=== PATIENT | male | born 1935 | race Caucasian/White ===

== ENCOUNTER → 2019-11-17 | Outpatient (CLI) | payer OTHER ==
[~2019-11-17] MED LIST: ASCO500 PO; ATOR40TA PO; DONE5 PO; FERROUS SULFATE PO; ISOMON20 PO; LISI5 PO; METO50ER PO; NITR.4SL SL; NORT25 PO; POTA10T PO; PYRI100 PO; SPIR25 PO; TAMS.4ER PO; TORS10 PO; XARELTO20 MG PO
[2019-11-19 14:12] LABS: Stool Occult Blood Guaiac 1 Neg (Neg)
== END | disposition home or self-care (01) ==
LOC: LAB SHORT 22:40 → LAB 22:40
PROVIDERS: Physician Assistant Medical
DX: L28.1 Prurigo nodularis (principal)
CPT/HCPCS: 82272

== ENCOUNTER 2020-04-17 15:02 | Emergency (ER) | payer OTHER ==
[~2020-04-17] VITALS: Ht 175.3 cm; Wt 93.4 kg
[~2020-04-17 15:02] MED LIST changes: +FEROSUL325 M1 PO; -FERROUS SULFATE PO; -ISOMON20 PO; +ISOSORBIDE MONO60 MG PO
[2020-04-17 16:28] LABS: Source, Urine Clean Catch
[2020-04-17 16:30] LABS: Bilirubin, Urine Neg (Neg); Blood, Urine Neg (Neg); Glucose Qualitative, Urine Neg (Neg); Ketones, Urine Neg (Neg); Leukocyte Esterase, Urine Neg (Neg); Nitrite, Urine Neg (Neg); Protein, Urine Neg (Neg); Specific Gravity, Urine 1.015 (1.003-1.022); Urobilinogen, Urine NORM (Normal)
[2020-04-17 16:44] LABS: Appearance, Urine Clear (Clear); Color, Urine Yellow (P-Yellow)
== END 2020-04-17 17:09 | disposition home or self-care (01) ==
LOC: ER 15:02
PROVIDERS: Physician Assistant
DX: R23.8 Other skin changes (principal); I11.0 Hypertensive heart disease with heart failure; I50.9 Heart failure, unspecified; I25.2 Old myocardial infarction; I25.10 Atherosclerotic heart disease of native coronary artery without angina pectoris; I48.91 Unspecified atrial fibrillation; Z79.01 Long term (current) use of anticoagulants; Z88.0 Allergy status to penicillin; Z79.899 Other long term (current) drug therapy; Z87.891 Personal history of nicotine dependence
CPT/HCPCS: 81003; 99283

== ENCOUNTER 2020-05-03 22:59 | Inpatient (IN) | payer OTHER, MEDICARE ==
[~2020-05-03] VITALS: Ht 175.3 cm; Wt 90.5 kg
[2020-05-03 23:26] LABS: BASOPHILS ABSOLUTE AUTO 0.05 K/mm3 (0.00-0.23); BASOPHILS PERCENT AUTO 0 % (0-2); EOSINOPHILS ABSOLUTE AUTO 0.01 K/mm3 (0.00-0.68); EOSINOPHILS PERCENT AUTO 0 % (0-6); Hematocrit 40.9 % (37.0-53.0); Hemoglobin 14.1 g/dL (13.5-17.5); IMMATURE GRAN PERCENT AUTO 1 % (0-1); LYMPHOCYTES ABSOLUTE AUTO 0.72 K/mm3 (0.84-5.20); LYMPHOCYTES PERCENT AUTO 3 % (21-46); MONOCYTES ABSOLUTE AUTO 1.12 K/mm3 (0.16-1.47); MONOCYTES PERCENT AUTO 4 % (4-13); Mean Corpuscular HGB 30.1 pg (26.0-34.0); Mean Corpuscular HGB Conc 34.5 g/dL (31.5-36.5); Mean Corpuscular Volume 87 fL (80-100); NEUTROPHILS ABSOLUTE AUTO 24.07 K/mm3 (1.96-9.15); NEUTROPHILS PERCENT AUTO 92 % (41-73); Platelet Count 236 K/mm3 (150-400); RDW Coefficient Variation 13.7 % (11.7-14.2); RDW Standard Deviation 43.7 fL (35.1-46.3); Red Blood Cell Count 4.69 M/mm3 (4.30-5.90); White Blood Cell Count 26.17 K/mm3 (4.00-11.30)
[2020-05-03 23:45] LABS: Alanine Aminotransfer (ALT/SGP 20 U/L (12-78); Albumin, Blood 3.4 g/dL (3.4-5.0); Albumin/Globulin Ratio 0.8 (0.8-1.8); Alk Phos 136 U/L (50-136); Anion Gap 8 mmol/L (6-16); Aspartate Aminotrans (AST/SGOT 14 U/L (12-37); Bilirubin, Total 1.3 mg/dL (0.1-1.0); Blood Urea Nitrogen 24 mg/dL (8-24); Bun/Creatinine Ratio 20.7 (12.0-20.0); CO2, Blood 28 mmol/L (21-32); Chloride, Blood 96 mmol/L (98-108); Creatinine, Blood 1.16 mg/dL (0.60-1.20); Globulin, Blood 4.3 g/dL (2.2-4.0); Glomerular Filtration Rate >60 (60-); Glucose, Blood 138 mg/dL (70-99); Potassium, Blood 4.3 mmol/L (3.5-5.5); Sodium, Blood 132 mmol/L (136-145); Total Protein, Blood 7.7 g/dL (6.4-8.2)
[2020-05-04 00:58] LABS: Troponin I 0.017 ng/mL (0.000-0.040)
[2020-05-04 03:40] LABS: Source, Urine Clean Catch
[2020-05-04 03:45] LABS: Bilirubin, Urine Neg (Neg); Blood, Urine 5+ (Neg); Glucose Qualitative, Urine Neg (Neg); Ketones, Urine Neg (Neg); Leukocyte Esterase, Urine 1+ (Neg); Nitrite, Urine Neg (Neg); Protein, Urine 1+ (Neg); Urobilinogen, Urine NORM (Normal)
[2020-05-04 03:53] LABS: Appearance, Urine Clear (Clear); Color, Urine Yellow (P-Yellow)
[2020-05-04 03:55] LABS: Bacteria Mod /hpf; Red Blood Cells, Urine 50-100 /hpf (0-2); Squamous Epithelial Cells Not Seen /hpf (Few)
[2020-05-04 03:56] LABS: Hyaline Casts 0-2 /lpf (0-2)
[2020-05-04] MEDS ORDERED: GABA100 PO (05:23)
[2020-05-04] MEDS ORDERED: IBUP800 PO (05:24)
[2020-05-04] MEDS ORDERED: Atarax10 MG PO (05:25)
[2020-05-04] MEDS ORDERED: METO25ER PO (05:26)
[2020-05-04] MEDS ORDERED: TEMOVATE15 G1 TOP (05:28)
[2020-05-04 06:09] LABS: BASOPHILS ABSOLUTE AUTO 0.03 K/mm3 (0.00-0.23); BASOPHILS PERCENT AUTO 0 % (0-2); EOSINOPHILS ABSOLUTE AUTO 0.03 K/mm3 (0.00-0.68); EOSINOPHILS PERCENT AUTO 0 % (0-6); Hematocrit 39.1 % (37.0-53.0); Hemoglobin 13.1 g/dL (13.5-17.5); IMMATURE GRAN ABSOLUTE AUTO 0.09 K/mm3 (0.00-0.10); IMMATURE GRAN PERCENT AUTO 1 % (0-1); LYMPHOCYTES ABSOLUTE AUTO 0.85 K/mm3 (0.84-5.20); LYMPHOCYTES PERCENT AUTO 5 % (21-46); MONOCYTES ABSOLUTE AUTO 0.99 K/mm3 (0.16-1.47); MONOCYTES PERCENT AUTO 6 % (4-13); Mean Corpuscular HGB 29.2 pg (26.0-34.0); Mean Corpuscular HGB Conc 33.5 g/dL (31.5-36.5); Mean Corpuscular Volume 87 fL (80-100); Mean Platelet Volume 10.1 fL (9.1-12.4); NEUTROPHILS ABSOLUTE AUTO 16.15 K/mm3 (1.96-9.15); NEUTROPHILS PERCENT AUTO 89 % (41-73); Platelet Count 200 K/mm3 (150-400); RDW Coefficient Variation 13.6 % (11.7-14.2); RDW Standard Deviation 43.7 fL (35.1-46.3); Red Blood Cell Count 4.49 M/mm3 (4.30-5.90); White Blood Cell Count 18.14 K/mm3 (4.00-11.30)
[2020-05-04 06:28] LABS: Albumin, Blood 3.1 g/dL (3.4-5.0); Anion Gap 6 mmol/L (6-16); Blood Urea Nitrogen 22 mg/dL (8-24); Bun/Creatinine Ratio 22.5 (12.0-20.0); CO2, Blood 28 mmol/L (21-32); Calcium, Blood 8.7 mg/dL (8.5-10.1); Chloride, Blood 99 mmol/L (98-108); Creatinine, Blood 0.98 mg/dL (0.60-1.20); Glomerular Filtration Rate >60 (60-); Glucose, Blood 122 mg/dL (70-99); Phosphorus, Blood 2.1 mg/dL (2.5-4.9); Potassium, Blood 4.2 mmol/L (3.5-5.5); Sodium, Blood 133 mmol/L (136-145)
[2020-05-04 06:44] LABS: Influenza A, PCR Negative (NEGATIVE); Influenza B, PCR Negative (NEGATIVE); Resp Syncytial Virus, PCR Negative (NEGATIVE); SARS-Cov-2 (COVID-19) PCR, MMC Negative (NEGATIVE)
[2020-05-04] MEDS ORDERED: Hair, Skin & N1 EACH PO (13:24)
--- NOTE | 2020-05-04 19:44 | NUR ---
NEW ER ADMIT PT ARRIVE TO APPROX 1745 ACCOMPANIED BY HIS . HE IS ABLE TO TRANSFER SBA FROM W/C TO BED. DX LLE CELLULITIS. LABS & ER TX'S EXPLAINED TO PT/ @ THEIR REQUEST, EXPECTED ANTIBX TX & ADMIT PROCESS EXPLAINED TO THEIR SATISFACTION. PT STATE CAME TO ER D/T INCREASING WEAKNESS, STATE WENT TO URGENT CARE ON PREVIOUS DAY & RECIEVED ORAL ANTIBX. HIS L LEG IS SOMEWHAT RED/SWOLLEN w MULT SCABS, MOST DRY. HE HAS MULT SCABS ALL EXTREMITIES, STATE CHR SKIN DISORDER, SEES OUTPT DERMATOLOGY. ALL SCABS OPEN TO AIR @ THIS TIME, SM APPARENT ULCER NOTED R BUTTOCKS. ORIENTED PT/ TO , CALL SYSTEM, FALL PRECAUTIONS. DINNER TRAY & FLUIDS PROVIDED. REPORT TO NOC RN WHO WILL PHOTO WOUNDS & DRESS IF NEEDED.
[2020-05-05] MEDS ORDERED: TEMOVATE15 G1 TOP (04:24)
[2020-05-05] MEDS ORDERED: Triamcinolone A15 GM TOP (04:27)
--- NOTE | 2020-05-05 06:46 | NUR ---
SHIFT SUMMARY: PATIENT IS A&OX3, IMPULSIVE AND HAS URGENCY TO VOID. BED ALARM IS ON FOR SAFETY. CONTINUES TO HAVE BRIGHT RED BLOOD IN URINE WITH A FEW SMALL CLOTS OBSERVED. BLADDER SCAN SHOWS LESS THAN 190ML, PVR, NOT RETAINING. BILAT LE HAVE MULTIPLE SCABBS WITH PEELING SKIN ON FEET. PATIENT REPORTS ITCHING, PRN ATARAX IS GIVEN WITH GOOD EFFECT. PATIENT DOSE SCRATCH AND CAUSES SOME SMALL GTTS OF BLOOD ON SHEETS.
--- NOTE | 2020-05-05 17:39 | NUR ---
SHIFT SUMMARY- PT IS A/O, PLESANT AND COOPERATIVE. HE IS EATING AND DRINKING WELL. HE FELL THIS MORNING DURING SHIFT CHANGE. NOTIFIED. HELD BP MEDS AND DIURETICS THIS MORNING DUE TO LOW BP. HE REPORTED NAUSEA THIS AFTERNOON MEDICATED PER MAY. HIS WAS AT BEDSIDE EARLY THIS AFTERNOON AND DAUGHTER IS CURRENTLY AT BEDSIDE. HIS BED IS IN THE LOW POSITION AND CALL LIGHT IS WITHIN REACH.
[2020-05-06 05:02] LABS: Hematocrit 35.8 % (37.0-53.0); Mean Corpuscular HGB 29.6 pg (26.0-34.0); Mean Corpuscular HGB Conc 33.5 g/dL (31.5-36.5); Mean Corpuscular Volume 88 fL (80-100); Mean Platelet Volume 10.5 fL (9.1-12.4); Platelet Count 178 K/mm3 (150-400); RDW Coefficient Variation 13.4 % (11.7-14.2); RDW Standard Deviation 43.6 fL (35.1-46.3); Red Blood Cell Count 4.05 M/mm3 (4.30-5.90); White Blood Cell Count 9.91 K/mm3 (4.00-11.30)
[2020-05-06 05:28] LABS: Anion Gap 6 mmol/L (6-16); Blood Urea Nitrogen 26 mg/dL (8-24); Bun/Creatinine Ratio 21.7 (12.0-20.0); CO2, Blood 30 mmol/L (21-32); Calcium, Blood 8.3 mg/dL (8.5-10.1); Chloride, Blood 98 mmol/L (98-108); Glomerular Filtration Rate >60 (60-); Glucose, Blood 108 mg/dL (70-99); Sodium, Blood 134 mmol/L (136-145)
--- NOTE | 2020-05-06 05:55 | NUR ---
SHIFT SUMMARY PATIENT ALERT AND ORIENTED. HAD NO COMPLAINTS OF PAIN OR SHORTNESS OF BREATH. PATIENT WAS STRUGGLING IN REGARDS TO URINATION HE WAS EXPERIENCING BOTH URGENCY AND FREQUENCY TO THE POINT WHERE HE WAS STANDING TO USE HIS URINAL EVERY 2-10 MINUTES. TO PROMOTE SAFETY AND SLEEP, A CONDOM CATHETER WAS PLACED ON THE PATIENT IN ORDER TO PREVENT ADDITIONAL FALLS HERE IN THE HOSPITAL. IV PATENT AND FLUSHED. BED IN LOWEST POSITION WITH WHEELS LOCKED AND ALARM ON. CALL LIGHT WITHIN REACH. REPORT GIVEN TO ONCOMING RN.
[2020-05-06] MEDS ORDERED: VISBIOME 112.51 EACH PO (11:39)
[2020-05-06] MEDS ORDERED: CEPH500 PO (11:40)
[2020-05-06] MEDS ORDERED: VITAMIN D31000 UNI1 PO (11:40)
--- NOTE | 2020-05-06 13:25 | NUR ---
DISCHARGED HOME WITH PRESENT. ALL QUESTIONS ANSWERED. PATIENT AND VERBALIZED UNDERSTANDING OF DISCHARGE INSTRUCTIONS. ADDITIONAL WRITTEN INFORMATION PROVIDED REGARDING HIBICLEANSE, PER DR CASILLAS VERBAL ORDER. POST VOID RESIDUAL OF 157ML, OKAY FOR DISCHARGE, PER DR GOMEZ.
== END 2020-05-06 12:33 | disposition home health service (06) | DRG 872 ==
LOC: ER 22:59 → ERHOLD 05-04 04:50 → MEDS 05-04 17:40
PROVIDERS: Emergency Medicine; Internal Medicine; ADMIT Family Medicine
DX: A41.9 Sepsis, unspecified organism (principal); E87.1 Hypo-osmolality and hyponatremia; I48.20 Chronic atrial fibrillation, unspecified; L03.116 Cellulitis of left lower limb; N39.0 Urinary tract infection, site not specified; Z20.822 Contact with and (suspected) exposure to COVID-19; I10 Essential (primary) hypertension; I25.10 Atherosclerotic heart disease of native coronary artery without angina pectoris; W19.XXXA Unspecified fall, initial encounter; Z87.891 Personal history of nicotine dependence; Z95.1 Presence of aortocoronary bypass graft; R31.0 Gross hematuria; Z79.01 Long term (current) use of anticoagulants; L30.9 Dermatitis, unspecified; R54 Age-related physical debility; N40.1 Benign prostatic hyperplasia with lower urinary tract symptoms
CPT/HCPCS: 0241U; 36415; 51701; 71045; 71250; 80048; 80053; 80069; 81001; 83605; 83735; 83880; 84484; 85025; 85027; 87040; 87086; 93005; 93010; 96361; 96374; 96375; 96376; 97116; 97161; 97165; 97530; 99285-25; A9270; J0690; J2405; J3370; J7050; J7120

== ENCOUNTER 2022-03-13 11:52 | Emergency (ER) | payer OTHER ==
[~2022-03-13] VITALS: Ht 175.3 cm; Wt 122.5 kg
[~2022-03-13 11:52] MED LIST changes: +Atarax10 MG PO; +CEPH500 PO; +GABA100 PO; +Hair, Skin & N1 EACH PO; +IBUP800 PO; +METO25ER PO; +TEMOVATE15 G1 TOP; +Triamcinolone A15 GM TOP; +VISBIOME 112.51 EACH PO; +VITAMIN D31000 UNI1 PO
[2022-03-13 13:00] LABS: BASOPHILS ABSOLUTE AUTO 0.04 K/mm3 (0.00-0.23); BASOPHILS PERCENT AUTO 1 % (0-2); EOSINOPHILS ABSOLUTE AUTO 0.22 K/mm3 (0.00-0.68); EOSINOPHILS PERCENT AUTO 3 % (0-6); Hematocrit 33.5 % (37.0-53.0); Hemoglobin 10.9 g/dL (13.5-17.5); IMMATURE GRAN ABSOLUTE AUTO 0.03 K/mm3 (0.00-0.10); IMMATURE GRAN PERCENT AUTO 0 % (0-1); LYMPHOCYTES ABSOLUTE AUTO 1.05 K/mm3 (0.84-5.20); LYMPHOCYTES PERCENT AUTO 13 % (21-46); MONOCYTES ABSOLUTE AUTO 0.57 K/mm3 (0.16-1.47); MONOCYTES PERCENT AUTO 7 % (4-13); Mean Corpuscular HGB 28.2 pg (26.0-34.0); Mean Corpuscular HGB Conc 32.5 g/dL (31.5-36.5); Mean Corpuscular Volume 87 fL (80-100); Mean Platelet Volume 10.3 fL (9.1-12.4); NEUTROPHILS ABSOLUTE AUTO 5.97 K/mm3 (1.96-9.15); NEUTROPHILS PERCENT AUTO 76 % (41-73); Platelet Count 211 K/mm3 (150-400); RDW Standard Deviation 49.9 fL (35.1-46.3); Red Blood Cell Count 3.87 M/mm3 (4.30-5.90); White Blood Cell Count 7.88 K/mm3 (4.00-11.30)
[2022-03-13 13:25] LABS: Albumin, Blood 3.1 g/dL (3.4-5.0); Albumin/Globulin Ratio 0.8 (0.8-1.8); Bilirubin, Total 0.7 mg/dL (0.1-1.0); Bun/Creatinine Ratio 14.8 (12.0-20.0); Calcium, Blood 8.7 mg/dL (8.5-10.1); Creatinine, Blood 0.94 mg/dL (0.60-1.20); Globulin, Blood 3.9 g/dL (2.2-4.0); Potassium, Blood 3.8 mmol/L (3.5-5.5)
[2022-03-13 13:43] LABS: Influenza A, PCR NEGATIVE (NEGATIVE); Influenza B, PCR NEGATIVE (NEGATIVE); Resp Syncytial Virus, PCR NEGATIVE (NEGATIVE); SARS-Cov-2 (COVID-19) PCR, MMC NEGATIVE (NEGATIVE)
[2022-03-13 15:13] LABS: Source, Urine Clean Catch
[2022-03-13 15:20] LABS: Appearance, Urine Clear (Clear); Bilirubin, Urine Neg (Neg); Blood, Urine Neg (Neg); Color, Urine Yellow (P-Yellow); Glucose Qualitative, Urine Neg (Neg); Ketones, Urine Neg (Neg); Leukocyte Esterase, Urine Neg (Neg); Nitrite, Urine Neg (Neg); Protein, Urine Neg (Neg); Urobilinogen, Urine NORM (Normal)
== END 2022-03-13 15:17 | disposition home or self-care (01) ==
LOC: ER 11:52
PROVIDERS: Emergency Medicine
DX: I11.0 Hypertensive heart disease with heart failure (principal); I50.9 Heart failure, unspecified; N40.0 Benign prostatic hyperplasia without lower urinary tract symptoms; F03.90 Unspecified dementia, unspecified severity, without behavioral disturbance, psychotic disturbance, mood disturbance, and anxiety; Z20.822 Contact with and (suspected) exposure to COVID-19; Z88.0 Allergy status to penicillin
CPT/HCPCS: 0241U; 70450; 71045; 80053; 81003; 83690; 83880; 84484; 85025; 90471; 90714; 93005; 93010; 96374; 96375; 99285-25; J1940; J2405

== ENCOUNTER 2022-08-10 15:22 | Emergency (ER) | payer OTHER ==
[~2022-08-10] VITALS: Ht 175.3 cm; Wt 93.9 kg
[2022-08-10 16:14] LABS: BASOPHILS ABSOLUTE AUTO 0.05 K/mm3 (0.00-0.23); BASOPHILS PERCENT AUTO 1 % (0-2); EOSINOPHILS ABSOLUTE AUTO 0.35 K/mm3 (0.00-0.68); EOSINOPHILS PERCENT AUTO 5 % (0-6); Hematocrit 31.2 % (37.0-53.0); Hemoglobin 10.1 g/dL (13.5-17.5); IMMATURE GRAN ABSOLUTE AUTO 0.02 K/mm3 (0.00-0.10); IMMATURE GRAN PERCENT AUTO 0 % (0-1); LYMPHOCYTES ABSOLUTE AUTO 1.24 K/mm3 (0.84-5.20); LYMPHOCYTES PERCENT AUTO 17 % (21-46); MONOCYTES ABSOLUTE AUTO 0.49 K/mm3 (0.16-1.47); MONOCYTES PERCENT AUTO 7 % (4-13); Mean Corpuscular HGB 27.5 pg (26.0-34.0); Mean Corpuscular HGB Conc 32.4 g/dL (31.5-36.5); Mean Corpuscular Volume 85 fL (80-100); Mean Platelet Volume 10.2 fL (9.1-12.4); NEUTROPHILS ABSOLUTE AUTO 5.23 K/mm3 (1.96-9.15); NEUTROPHILS PERCENT AUTO 71 % (41-73); Platelet Count 224 K/mm3 (150-400); RDW Coefficient Variation 16.4 % (11.7-14.2); RDW Standard Deviation 50.5 fL (35.1-46.3); Red Blood Cell Count 3.67 M/mm3 (4.30-5.90); White Blood Cell Count 7.38 K/mm3 (4.00-11.30)
[2022-08-10 16:33] LABS: Albumin, Blood 3.2 g/dL (3.4-5.0); Albumin/Globulin Ratio 0.8 (0.8-1.8); Bilirubin, Total 0.9 mg/dL (0.1-1.0); Bun/Creatinine Ratio 13.8 (12.0-20.0); Calcium, Blood 8.9 mg/dL (8.5-10.1); Creatinine, Blood 1.16 mg/dL (0.60-1.20); Globulin, Blood 4.2 g/dL (2.2-4.0); Potassium, Blood 3.6 mmol/L (3.5-5.5); Total Protein, Blood 7.4 g/dL (6.4-8.2)
[2022-08-10 16:51] LABS: Source, Urine Clean Catch
[2022-08-10 16:53] LABS: Appearance, Urine Clear (Clear); Bilirubin, Urine Neg (Neg); Blood, Urine Neg (Neg); Color, Urine Yellow (P-Yellow); Glucose Qualitative, Urine Neg (Neg); Ketones, Urine Neg (Neg); Leukocyte Esterase, Urine Neg (Neg); Nitrite, Urine Neg (Neg); Protein, Urine Neg (Neg); Urobilinogen, Urine NORM (Normal)
[2022-08-10 16:57] LABS: Influenza A, PCR NEGATIVE (NEGATIVE); Influenza B, PCR NEGATIVE (NEGATIVE); Resp Syncytial Virus, PCR NEGATIVE (NEGATIVE); SARS-Cov-2 (COVID-19) PCR, MMC NEGATIVE (NEGATIVE)
[2022-08-10 19:15] VITALS: BP 118/74
[2022-08-10] MEDS ORDERED: MECL25 PO (19:19)
== END 2022-08-10 19:39 | disposition home or self-care (01) ==
LOC: ER 15:22
PROVIDERS: Emergency Medicine
DX: H81.399 Other peripheral vertigo, unspecified ear (principal); I48.91 Unspecified atrial fibrillation; I10 Essential (primary) hypertension
CPT/HCPCS: 0241U; 71046; 80053; 81003; 83605; 83735; 83880; 84484; 85025; 93005; 93010; 96361; 96374; 99284-25; A9270; J7030

== ENCOUNTER 2022-08-18 16:34 | Inpatient (IN) | payer OTHER ==
[~2022-08-18] VITALS: Ht 175.3 cm; Wt 84.3 kg
[~2022-08-18 16:34] MED LIST changes: +MECL25 PO
[2022-08-18 17:07] LABS: BASOPHILS ABSOLUTE AUTO 0.05 K/mm3 (0.00-0.23); BASOPHILS PERCENT AUTO 1 % (0-2); EOSINOPHILS ABSOLUTE AUTO 0.24 K/mm3 (0.00-0.68); EOSINOPHILS PERCENT AUTO 3 % (0-6); Hematocrit 34.8 % (37.0-53.0); IMMATURE GRAN ABSOLUTE AUTO 0.02 K/mm3 (0.00-0.10); IMMATURE GRAN PERCENT AUTO 0 % (0-1); LYMPHOCYTES ABSOLUTE AUTO 1.35 K/mm3 (0.84-5.20); LYMPHOCYTES PERCENT AUTO 17 % (21-46); MONOCYTES ABSOLUTE AUTO 0.45 K/mm3 (0.16-1.47); MONOCYTES PERCENT AUTO 6 % (4-13); Mean Corpuscular HGB 27.1 pg (26.0-34.0); Mean Corpuscular HGB Conc 31.6 g/dL (31.5-36.5); Mean Corpuscular Volume 86 fL (80-100); Mean Platelet Volume 10.4 fL (9.1-12.4); NEUTROPHILS ABSOLUTE AUTO 6.03 K/mm3 (1.96-9.15); NEUTROPHILS PERCENT AUTO 74 % (41-73); Platelet Count 235 K/mm3 (150-400); RDW Coefficient Variation 16.5 % (11.7-14.2); RDW Standard Deviation 51.8 fL (35.1-46.3); Red Blood Cell Count 4.06 M/mm3 (4.30-5.90); White Blood Cell Count 8.14 K/mm3 (4.00-11.30)
[2022-08-18 17:36] LABS: Albumin, Blood 3.5 g/dL (3.4-5.0); Albumin/Globulin Ratio 0.8 (0.8-1.8); Bilirubin, Total 0.9 mg/dL (0.1-1.0); Bun/Creatinine Ratio 12.8 (12.0-20.0); Calcium, Blood 9.1 mg/dL (8.5-10.1); Creatinine, Blood 1.33 mg/dL (0.60-1.20); Globulin, Blood 4.4 g/dL (2.2-4.0); Potassium, Blood 3.4 mmol/L (3.5-5.5); Total Protein, Blood 7.9 g/dL (6.4-8.2)
[2022-08-18] MEDS ORDERED: ACET500 PO (17:46)
[2022-08-18] MEDS ORDERED: ELIQUIS5 M2 PO (17:47)
[2022-08-18] MEDS ORDERED: ATOR40TA PO (17:48)
[2022-08-18 21:11] VITALS: BP 106/60
[2022-08-19 03:33] VITALS: BP 109/89
[2022-08-19 05:03] LABS: BASOPHILS ABSOLUTE AUTO 0.04 K/mm3 (0.00-0.23); BASOPHILS PERCENT AUTO 1 % (0-2); EOSINOPHILS ABSOLUTE AUTO 0.37 K/mm3 (0.00-0.68); EOSINOPHILS PERCENT AUTO 5 % (0-6); Hematocrit 33.1 % (37.0-53.0); Hemoglobin 10.4 g/dL (13.5-17.5); IMMATURE GRAN ABSOLUTE AUTO 0.02 K/mm3 (0.00-0.10); IMMATURE GRAN PERCENT AUTO 0 % (0-1); LYMPHOCYTES ABSOLUTE AUTO 1.19 K/mm3 (0.84-5.20); LYMPHOCYTES PERCENT AUTO 15 % (21-46); MONOCYTES ABSOLUTE AUTO 0.54 K/mm3 (0.16-1.47); MONOCYTES PERCENT AUTO 7 % (4-13); Mean Corpuscular HGB 26.7 pg (26.0-34.0); Mean Corpuscular HGB Conc 31.4 g/dL (31.5-36.5); Mean Corpuscular Volume 85 fL (80-100); Mean Platelet Volume 10.6 fL (9.1-12.4); NEUTROPHILS ABSOLUTE AUTO 5.73 K/mm3 (1.96-9.15); NEUTROPHILS PERCENT AUTO 73 % (41-73); Platelet Count 209 K/mm3 (150-400); RDW Coefficient Variation 16.7 % (11.7-14.2); RDW Standard Deviation 51.6 fL (35.1-46.3); Red Blood Cell Count 3.89 M/mm3 (4.30-5.90); White Blood Cell Count 7.89 K/mm3 (4.00-11.30)
--- NOTE | 2022-08-19 05:03 | NUR ---
Summary: Patient admitted overnight for elevated tropi and BNP. Patient has been having SOB. On 1L while he slept because he normally wears cpap at home. Patient verbalized that he has not been very steady on his feet and very weak lately. Bed alarm on. Call light in reach. Patient AOx3. No complaints overnight.
[2022-08-19 05:36] LABS: Albumin, Blood 3.2 g/dL (3.4-5.0); Albumin/Globulin Ratio 0.8 (0.8-1.8); Bilirubin, Total 0.9 mg/dL (0.1-1.0); Bun/Creatinine Ratio 13.4 (12.0-20.0); Calcium, Blood 8.7 mg/dL (8.5-10.1); Creatinine, Blood 1.19 mg/dL (0.60-1.20); Potassium, Blood 3.1 mmol/L (3.5-5.5); Total Protein, Blood 7.2 g/dL (6.4-8.2)
[2022-08-19 08:21] VITALS: BP 105/87
[2022-08-19 15:45] VITALS: BP 102/68
[2022-08-19 19:24] VITALS: BP 108/78
[2022-08-20 02:41] VITALS: BP 121/92
[2022-08-20 05:08] LABS: Hematocrit 34.9 % (37.0-53.0); Mean Corpuscular HGB Conc 31.5 g/dL (31.5-36.5); Mean Corpuscular Volume 86 fL (80-100); Mean Platelet Volume 10.5 fL (9.1-12.4); Platelet Count 224 K/mm3 (150-400); RDW Coefficient Variation 16.5 % (11.7-14.2); RDW Standard Deviation 51.8 fL (35.1-46.3); Red Blood Cell Count 4.07 M/mm3 (4.30-5.90); White Blood Cell Count 9.09 K/mm3 (4.00-11.30)
[2022-08-20 05:27] LABS: Creatinine, Blood 1.19 mg/dL (0.60-1.20); Potassium, Blood 3.8 mmol/L (3.5-5.5)
--- NOTE | 2022-08-20 06:35 | NUR ---
Summary: No acute events overnight. Sponge bath given. Patient stood at bedside to void in urinal many times with about 50-100 ml output each time. Aox4. Pleasant and cooperative with all care. Patient able to turn self in bed.
[2022-08-20 07:50] VITALS: BP 112/82
[2022-08-20 12:44] VITALS: BP 103/63
[2022-08-20 16:21] VITALS: BP 90/71
--- NOTE | 2022-08-20 16:47 | NUR ---
SHIFT SUMMARY PT WOKE THIS AM FOR SHIFT REPORT. RESTING QUIETLY WITH NO C/O. UP TO EOB ON HIS OWN FOR MEALS. PT IS WEAK BUT ABLE TO STAND AT BS TO USE URINAL INDEPENDENTLY. UP TO SHOWER THIS AFTERNOON, HOWEVER, NOT ENOUGH HOT WATER TO COMPLETE. LINENS AND GOWN CHANGED. DRSG TO LLE CHANGED, OINTMENT APPLIED TO NEEDED AREAS. TELE MX CALLED MULTIPLE TIMES THRU OUT THE DAY, REGARDING ELEVATED HR. DR GOMEZ NOTIFIED AND MEDICATIONS ADJUSTED THRU OUT THE DAY NEEDED. HR IMPROVED THIS AFTERNOON WITH RATE STAYING IN THE 90'S, THE PAST FEW HOURS, PER TELE MX. PT'S IN TO VISIT LATER THIS AFTERNOON. PT REQUESTING WHEN HE COULD GO HOME. DR GOMEZ TO RE-EVALUATE PT AND LABS AGAIN IN AM. NO C/O. DENIED FURTHER NEEDS AT THIS TIME. CALL LT IN REACH.
[2022-08-20 19:46] VITALS: BP 93/63
[2022-08-21 02:38] VITALS: BP 131/91
--- NOTE | 2022-08-21 03:22 | NUR ---
IV DISPLACED WHILE PT WAS SLEEPING, NEW ONE OBTAINED IN R FOREARM. PT ALSO HAD A SCABBED AREA ON R ELBOW OPEN UP AND START BLEEDING. CLEANED AREA AND PLACED NONADHERENT DRESSING WRAPPED WITH COBAN.
[2022-08-21 05:24] LABS: Bun/Creatinine Ratio 20.7 (12.0-20.0); Calcium, Blood 8.9 mg/dL (8.5-10.1); Creatinine, Blood 1.16 mg/dL (0.60-1.20); Potassium, Blood 3.9 mmol/L (3.5-5.5)
--- NOTE | 2022-08-21 05:38 | NUR ---
SHIFT SUMMARY PT A&OX3-4, AND COOPERATIVE WITH CARE. PT OCCASIONALLY CONFUSED, BUT EASILY REORIENTABLE, BED ALARM ON. NO ACUTE CHANGES. PT ABLE TO SIT/STAND AT EDGE OF BED TO USE URINAL. TOLERATING PO INTAKE. CALL LIGHT WITHIN REACH, THOUGH PT USUALLY GETS TO THE EDGE OF BED WITHOUT USING THE CALL LIGHT.
[2022-08-21 07:49] VITALS: BP 69/55
[2022-08-21 07:53] VITALS: BP 87/75
[2022-08-21 08:12] VITALS: BP 116/82
[2022-08-21 21:11] VITALS: BP 103/64
[2022-08-22 05:41] VITALS: BP 103/70
[2022-08-22 06:14] LABS: Bun/Creatinine Ratio 22.2 (12.0-20.0); Calcium, Blood 8.9 mg/dL (8.5-10.1); Creatinine, Blood 1.08 mg/dL (0.60-1.20); Potassium, Blood 3.7 mmol/L (3.5-5.5)
--- NOTE | 2022-08-22 06:41 | NUR ---
SUMMARY: PT A/O TO SELF AND SURROUNDINGS AND IS ABLE TO SPECIFY NEEDS WHEN STAFF PRESENT. HE'S OCCASIONALLY FORGETFULL BUT REORIENTS EASILY. BED ALARM ON FOR POSSIBLE IMPULSIVIY/FALL RISK. HE'S UP W/SBA AND USED URINAL AD MICHAELA AT EOB. HE REMAINED ON 2L O2 T/O NOCTE W/SPO2 WNL AND CPAP TOLERATED FOR BRIEF PERIODS AT A TIME, CONT BIOX INTACT. PT C/O FREQUENT ITCHING SKIN W/CREAM APPLIED PRN. 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 OINTMENT APPLIED TO AFFECTED AREAS PER EMAR AND DX'S CHANGED TO R.FA AND LLE. HE REMAINS AFIB ON TELEMERY AT 90'S BPM. NO ACUTE CHANGES, VSS/AFEBRILE. WCTM AND REPORT TO DAY RN.
[2022-08-22 07:36] VITALS: BP 91/75
[2022-08-22 08:58] VITALS: BP 104/67
--- NOTE | 2022-08-22 18:30 | NUR ---
PATIENT DISCHARGED TO HOME WITH AND DAUGHTER, WILL BE ADMITTED TO HOSPICE ON SUNDAY. IV SALINE LOCK REMOVED WITHOUT INCIDENT. VAERBALIZED UNDERSTANDING OF D/C INSTRUCTIONS. PORTABLE OXYGEN TANK DELIVERED TO ROOM AT 1725 [facility] [place] WHO STATED HE WOULD ARRANGE FOR OXYGEN CONCENTRATOR FOR HOME. OFF UNIT VIA W/C AT 1740. MISSING LOWER DENTURE FOUND IN BED WHEN LINENS REMOVED. TRIED TO CALL PT'S , BUT NO ANSWER AND NO VM HAS BEEN SET UP. PLACED IN LABELED BIOHAZARD BAG AND GIVEN TO Taya WHARTON AT [facility] DESK.
== END 2022-08-22 17:48 | disposition hospice, home (50) | DRG 291 ==
LOC: ER 16:34 → MEDS 16:35 → ENPENDDIS 08-22 14:16 → MEDS 08-22 17:48
PROVIDERS: Internal Medicine; Student in an Organized Health Care Education/Training Program; ADMIT Student in an Organized Health Care Education/Training Program
PROC: 5A09357 Assistance with Respiratory Ventilation, Less than 24 Consecutive Hours, Continuous Positive Airway Pressure (ICD-10-PCS; principal; 2022-08-22)
DX: I11.0 Hypertensive heart disease with heart failure (principal); I50.43 Acute on chronic combined systolic (congestive) and diastolic (congestive) heart failure; J96.01 Acute respiratory failure with hypoxia; I42.9 Cardiomyopathy, unspecified; I48.91 Unspecified atrial fibrillation; Z51.5 Encounter for palliative care; Z66 Do not resuscitate; E87.6 Hypokalemia; F03.90 Unspecified dementia, unspecified severity, without behavioral disturbance, psychotic disturbance, mood disturbance, and anxiety; N40.0 Benign prostatic hyperplasia without lower urinary tract symptoms; G47.33 Obstructive sleep apnea (adult) (pediatric); I25.10 Atherosclerotic heart disease of native coronary artery without angina pectoris; Z95.1 Presence of aortocoronary bypass graft; Z88.0 Allergy status to penicillin; Z79.01 Long term (current) use of anticoagulants; Z79.899 Other long term (current) drug therapy; Z79.811 Long term (current) use of aromatase inhibitors; Z79.2 Long term (current) use of antibiotics; Z98.890 Other specified postprocedural states
CPT/HCPCS: 36415; 71260; 80048; 80053; 82947; 83880; 84484; 85025; 85027; 93005; 93010; 94660; 94762; 96374-59; 96375; 97110; 97162; 97530; 99285-25; A9270; C8929; G0378; J1940; Q9957; Q9967